=== PATIENT | male | born 1995 | race Caucasian/White ===

== ENCOUNTER → 2022-12-19 | Outpatient (CLI) | payer OTHER ==
--- NOTE | 2022-12-19 15:03 | CT ---
EXAMINATION TYPE: CT chest wo con CT DLP: 570 mGycm, Automated exposure control for dose reduction was used. DATE OF EXAM: 12/19/2022 2:57 PM COMPARISON: None CLINICAL INDICATION:Male, 27 years old with history of J90 PLEURAL EFFUSION, NOT ELSEWHERE CLASSIFIED ; PHH, chest pain pleural effusion TECHNIQUE: Multiple axial images were obtained through the chest without IV contrast. Lack of IV or o ral contrast limits evaluation of solid and hollow organ viscera. . Coronal and sagittal reformats re viewed. FINDINGS: LUNGS/ PLEURA: No pleural effusion, pneumothorax, focal consolidation. Lateral left lower lobe 3 mm p ulmonary nodule (series 4, image 43). AIRWAY: Patent and unremarkable.. HEART: Size within normal limits. No pericardial effusion. MEDIASTINUM: No gross evidence of adenopathy. Residual thymic tissue VASCULATURE: No aortic aneurysm. MUSCULOSKELETAL: No acute osseous abnormalities. Chronic appearing anterior wedging which most noted involving the superior endplate of the T12 vertebral body. Approximately 40% height loss. No retropul cindi. SOFT TISSUES/LYMPH NODES: Unremarkable. LOWER NECK: No significant findings. UPPER ABDOMEN: No significant findings. IMPRESSION: 1. No acute thoracic process. 2. Left lower lobe 3 mm pulmonary nodule. Statistically benign. 3. Chronic appearing anterior wedge compression deformity at T12 vertebral body. Correlate with point tenderness.
== END ==
LOC: RADCTMAIN 14:30
PROVIDERS: ATTEND Family Medicine
DX: J90 Pleural effusion, not elsewhere classified (principal); M48.54XA Collapsed vertebra, not elsewhere classified, thoracic region, initial encounter for fracture; R91.1 Solitary pulmonary nodule
CPT/HCPCS: 71250